=== PATIENT | male | born 1985 | race Caucasian/White ===

== ENCOUNTER 2019-11-30 13:05 | Emergency (ER) | payer SELFPAY ==
[~2019-11-30] VITALS: Ht 172.7 cm; Wt 124.3 kg
[2019-11-30 13:44] VITALS: BP 117/57
--- NOTE | 2019-11-30 13:47 | NUR ---
ASSISTED PT TO WAIT IN THE LOBBY.
--- NOTE | 2019-11-30 14:30 | NUR ---
PT C/O R DENTAL PAIN. DENIES FEVER/CHILLS. PT AWAKE AND ALERT, SKIN NORMAL COLOR WARM AND DRY, RR EVEN AND UNLABORED.
[2019-11-30 14:36] VITALS: BP 117/57
--- NOTE | 2019-11-30 14:36 | NUR ---
Patient discharged with v/s stable. Written and verbal after care instructions given and explained. Patient alert, oriented and verbalized understanding of instructions. Ambulatory with steady gait. All questions addressed prior to discharge. ID band removed. Patient advised to follow up with PMD. Rx of AOXICLLIN, IBUPROFEN given. Patient educated on indication of medication including possible reaction and side effects. Opportunity to ask questions provided and answered.
== END 2019-11-30 14:36 | disposition home or self-care (01) ==
LOC: MED 13:05
DX: K08.89 Other specified disorders of teeth and supporting structures (principal)
CPT/HCPCS: 99283

== ENCOUNTER 2019-11-30 16:41 | Emergency (ER) | payer SELFPAY ==
--- NOTE | 2019-11-30 17:01 | NUR ---
PT REFUSED TO SEE A DOCTOR IN THE ER AGAIN. PT LEFT BEFORE BEING TRIAGED.
== END 2019-11-30 17:01 | disposition left against medical advice (07) ==
LOC: MED 16:41
DX: Z48.00 Encounter for change or removal of nonsurgical wound dressing (principal); Z53.21 Procedure and treatment not carried out due to patient leaving prior to being seen by health care provider